=== PATIENT | female | born 1995 | race Hispanic/Latino ===

== ENCOUNTER 2024-11-03 23:57 | Emergency (ER) | payer MEDICAID ==
[~2024-11-03] VITALS: Ht 167.6 cm; Wt 79.4 kg
[2024-11-04] MEDS: 0.9%NACL 1000ML 1,000 ML IV ONE (00:24)
[2024-11-04 00:32] LABS: IMMATURE GRANULOCYTE ABSOLUTE 0.27 K/uL (0-1); NUCLEATED RED BLOOD CELLS 0.0 % (0.0-0.19); PLATELET COUNT (AUTO) 302 K/uL (130-400); RED BLOOD CELL COUNT(AUTO) 3.40 MIL/uL (4.00-5.50); RED CELL DISTRIBUTION WIDTH 13.0 % (11.0-15.5); WHITE BLOOD COUNT (AUTO) 11.0 K/uL (4.8-10.8)
[2024-11-04 00:41] LABS: CREATININE 0.5 mg/dL (0.5-1.0); GLOMERULAR FILTR. RATE CALC 130.0 mL/min (>90); GLUCOSE,RANDOM 104.0 mg/dL (70-105); SODIUM SERUM 137.0 mmol/L (136-145); UREA NITROGEN, BLOOD 5.0 mg/dL (7-18)
[2024-11-04 01:07] LABS: HCG,QUANTITATIVE 39939.0 mIU/mL (0-5)
--- NOTE | 2024-11-04 01:16 | HMCIMG ---
EXAM: US Obstetrical, Complete > 14 weeks CLINICAL HISTORY: Abdominal pain TECHNIQUE: Transabdominal imaging of the maternal pelvis and a >14 week gestation with image documentation. COMPARISON: None available. FINDINGS: FETUS: There is a single living intrauterine gestation, estimated gestational age 23 weeks 1 day ??? 12 days. POSITION: Cephalic, longitudinal lie. HEART RATE: 147 bpm. BIOMETRICS: Based on composite biometry, the estimated gestational age by ultrasound is 23 weeks 1 day. ANATOMIC SURVEY: Visualized anatomy, including lateral ventricles, choroid plexus, cerebellum, cisterna magna, stomach, kidneys, urinary bladder, spine, cord insertion, 3-vessel cord, and 4-chamber heart, are unremarkable. PLACENTA: Anterior, grade I. No evidence of previa or abruption. AMNIOTIC FLUID: Amniotic fluid index: 16.7 cm, within normal limits. CERVIX: Cervical length: 2.95 cm. Closed. SONOGRAPHIC MEASUREMENTS: BPD: 5.57 cm, 23 weeks and 0 days. HC: 21.38 cm, 23 weeks and 3 days. AC: 18.09 cm, 23 weeks and 6 days. FL: 3.82 cm, 22 weeks and 2 days. Cephalic Index: 72.8% (normal 70???86%). Estimated weight: 568 g ??? 86 g (50.80th percentile at 23 weeks and 1 day) IMPRESSION: Single living intrauterine gestation estimated at 23 weeks 1 day ??? 1 day by today???s ultrasound criteria. Normal growth and anatomy. Normal amniotic fluid volume. Cervical length 2.95 cm. No acute abnormality. /[place]
--- NOTE | 2024-11-04 02:01 | ERN ---
ED Note History of Present Illness Stated Complaint: VAGINAL/ABD PRESSURE Chief Complaint: OB>20 weeks gest. Time Seen by MD: 00:05 Time Seen by Midlevel: 00:05 Dictation: The Patient is a 28-year-old female who reports being 22 weeks who pres ents to the emergency department with complaints of lower abdominal pressure onset today. Patient denies any vaginal bleeding or discharge. Denies any nausea or vomiting. Denies any fevers, diarrhea or constipation. Patient denies any contractions. Reports she was seeing a OBGYN in [place] but has now changed to doctor [place]. Allergies: Coded Allergies: No Known Allergies (Unverified Allergy, Unknown, 11/04/24) Past Medical History Past Medical History: No Pertinent History Surgical History: None LMP: May 27, 2024 : 2 Para: 1 RN Note Reviewed/Agreed w/PFSH: Yes Review of System Dictation Constitutional: Negative for fever,chills, and weight loss Eyes: Negative for injury, pain,redness, and discharge ENT: Negative for injury,pain or swelling Cardiovascular: Negative for chest pain, palpitations, and edema Respiratory: Negative for shortness of breath, cough, and wheezing, Abdomen/GI: Negative for nausea, vomiting, diarrhea, and constipation positive for abdominal pain Back: Negative for injury and pain : Negative for injury, bleeding and discharge MS/Extremity: Negative for injury and deformity Skin: Negative for rash, and discoloration Neuro: Negative for headache, weakness, numbness, tingling, and seizure Psych: Negative for suicide ideation, homicidal ideation, and hallucinations Initial Vital Sign VS Vital Signs Date Time Temp Pulse Resp B/P (MAP) Pulse Ox O2 Delivery O2 Flow Rate FiO2 11/03/24 23:59 98.1 88 20 115/73 99 Room Air 11/04/24 00:20 0 21 Physical Exam Dictation Vital Signs reviewed General Appearance: Alert, oriented x 3, no acute distress, well developed, nourished. Head and Face: non-traumatic. Eyes: PERRL, pink conjunctivas, eyelid no trauma, anterior chamber with arcus s enilis. Ears: Pinnas intact and no signs of trauma or erythema ear canals clear and no discharge TM no erythema Nose: No discharge, no bleeding. Oropharynx: Mouth normal, tongue pink. pharynx clear,no erythema, tonsils no exudates, no abscesses noted, mucous membrane moist Neck: Supple, non-tender, no thyromegaly, no masses, no JVD, no bruits Breast:Deferred Chest:No tenderness, no crepitus, no paradoxical movement, no retractions Lungs:Clear, well-ventilated, symmetric, no rales, no wheezing, no rhonchi, no stridor, good breath sounds bilaterally Heart: Regular rate, regular rhythm, no murmur, no gallops Vascular: no peripheral edema, Abdomen: Firm, positive bowel sounds, distended, no guarding, nontender, no rebound, no masses no hepatomegaly, no splenomegaly, no Kennedy's sign, no hernias. Rectal: Deferred Genital: Deferred Neurological: Normal speech, motor function intact, sensory function intact Musculoskeletal: Neck nontender, full range of motion, back nontender, full range of motion, Extremities: nontender, full range of motion Skin: Color pink, dry, no turgor, no rash, no lacerations, no abrasions, no contusions. Lymphatic: Deferred Results (Laboratory/Radiology) Laboratory/Radiology Laboratory Tests Test 11/04/24 00:20 11/04/24 01:57 White Blood Count 11.0 K/uL (4.8-10.8) H Red Blood Count 3.40 MIL/uL (4.00-5.50) L Hemoglobin 11.2 g/dL (12.0-16.0) L Hematocrit 31.2 % (36-48) L Mean Corpuscular Volume 91.8 fL (79-99) Mean Corpuscular Hemoglobin 32.9 pg (27.0-33.0) Mean Corpuscular Hemoglobin Concent 35.9 g/dL (32.0-36.0) Red Cell Distribution Width 13.0 % (11.0-15.5) Platelet Count 302 K/uL (130-400) Mean Platelet Volume 10.1 fL (7.5-10.5) Immature Granulocyte % (Auto) 2.5 % (0-1) H Neutrophils (%) (Auto) 68.4 % (40.0-77.0) Lymphocytes (%) (Auto) 21.0 % (21.0-51.0) Monocytes (%) (Auto) 6.2 % (3.0-13.0) Eosinophils (%) (Auto) 1.5 % (0.0-8.0) Basophils (%) (Auto) 0.4 % (0.0-5.0) Neutrophils # (Auto) 7.5 K/uL (1.8-7.7) Lymphocytes # (Auto) 2.3 K/uL (1.0-4.8) Monocytes # (Auto) 0.7 K/uL (0.1-1.0) Eosinophils # (Auto) 0.17 K/uL (0.00-0.70) Basophils # (Auto) 0.04 K/uL (0.00-0.20) Absolute Immature Granulocyte (auto 0.27 K/uL (0-1) Nucleated Red Blood Cells 0.0 % (0.0-0.19) Sodium Level 137 mmol/L (136-145) Potassium Level 3.5 mmol/L (3.5-5.1) Chloride Level 103 mmol/L (101-111) Carbon Dioxide Level 22 mmol/L (21-32) Blood Urea Nitrogen 5 mg/dL (7-18) L Creatinine 0.5 mg/dL (0.5-1.0) Glomerular Filtration Rate Calc 130 mL/min (>90) Random Glucose 104 mg/dL (70-105) Total Calcium 8.3 mg/dL (8.5-10.1) L Human Chorionic Gonadotropin, Quant 92246 mIU/mL (0-5) H Urine Color LIGHT-YELLOW (YELLOW) Urine Appearance CLOUDY (CLEAR) H Urine pH 6.0 (5.0-8.0) Urine Specific [place] 1.007 (1.001-1.031) Urine Protein NEGATIVE mg/dL (NEGATIVE) Urine Glucose (UA) NEGATIVE mg/dL (NEGATIVE) Urine Ketones NEGATIVE mg/dL (NEGATIVE) Urine Occult Blood NEGATIVE (NEGATIVE) Urine Nitrate NEGATIVE (NEGATIVE) Urine Bilirubin NEGATIVE mg/dL (NEGATIVE) Urine Urobilinogen 0.2 mg/dL (0.2-1.0) Urine Leukocyte Esterase NEGATIVE [place]/uL Urine RBC 0-1 /HPF (0-1) Urine WBC 2-5 /HPF (0-1) H Urine Squamous Epithelial Cells MOD /HPF (0-2) Urine Amorphous Crystals (Auto) RARE /LPF (None Seen) Urine Bacteria FEW /HPF (None Seen) ORDERING PHYSICIAN: MEEK LOVELL PROCEDURE: OB >14 - US OB >14 WEEKS EXAM: US Obstetrical, Complete > 14 weeks CLINICAL HISTORY: Abdominal pain TECHNIQUE: Transabdominal imaging of the maternal pelvis and a >14 week gestation with image documentation. COMPARISON: None available. FINDINGS: FETUS: There is a single living intrauterine gestation, estimated gestational age 23 weeks 1 day ??? 12 days. POSITION: Cephalic, longitudinal lie. HEART RATE: 147 bpm. BIOMETRICS: Based on composite biometry, the estimated gestational age by ultrasound is 23 weeks 1 day. ANATOMIC SURVEY: Visualized anatomy, including lateral ventricles, choroid plexus, cerebellum, cisterna magna, stomach, kidneys, urinary bladder, spine, cord insertion, 3-vessel cord, and 4-chamber heart, are unremarkable. PLACENTA: Anterior, grade I. No evidence of previa or abruption. AMNIOTIC FLUID: Amniotic fluid index: 16.7 cm, within normal limits. CERVIX: Cervical length: 2.95 cm. Closed. SONOGRAPHIC MEASUREMENTS: BPD: 5.57 cm, 23 weeks and 0 days. HC: 21.38 cm, 23 weeks and 3 days. AC: 18.09 cm, 23 weeks and 6 days. FL: 3.82 cm, 22 weeks and 2 days. Cephalic Index: 72.8% (normal 70???86%). Estimated weight: 568 g ??? 86 g (50.80th percentile at 23 weeks and 1 day) IMPRESSION: Single living intrauterine gestation estimated at 23 weeks 1 day ??? 1 day by today???s ultrasound criteria. Normal growth and anatomy. Normal amniotic fluid volume. Cervical length 2.95 cm. No acute abnormality. /[place] Labs Reviewed?: Yes ED Course ED Course Orders Procedure Category Date Status Time Cbc With Differential LAB 11/04/24 Complete 00:10 Abo/Rh BBK 11/04/24 In Process 00:10 Hcg,Quantitative LAB 11/04/24 Complete 00:10 Us Ob >14 Weeks US 11/04/24 Resulted 00:10 0.9%Nacl 1000ml (Ns PHA 11/04/24 Complete 1000ml) 00:30 Acetaminophen 325 Tab PHA 11/04/24 Complete (Tylenol 325mg Tab 00:30 Basic Metabolic Panel LAB 11/04/24 Complete 00:10 Urinalysis Profile LAB 11/04/24 Complete 00:10 Current Medications Medications (Trade) Dose Ordered Sig/Stephanie Route PRN Reason Start Time Stop Time Status Last Admin Dose Admin Acetaminophen (TYLenol 325MG TAB) 650 mg ONCE ONCE PO 11/04/24 00:30 11/04/24 00:31 DC 11/04/24 00:25 Sodium Chloride 1,000 ml @ 0 mls/hr ONCE ONCE IV 11/04/24 00:30 11/04/24 00:31 DC 11/04/24 00:24 Vital Signs Date Time Temp Pulse Resp B/P (MAP) Pulse Ox O2 Delivery O2 Flow Rate FiO2 11/04/24 02:03 99.1 81 16 110/62 97 Room Air* 0 21 11/04/24 00:20 97.9 103 17 118/75 98 Room Air* 0 21 11/03/24 23:59 98.1 88 20 115/73 99 Room Air Medical Decision Making MDM The Patient is a 28-year-old female who reports being 22 weeks who presents to the emergency department with complaints of lower abdominal pressure onset today. Patient denies any vaginal bleeding or discharge. Denies any nausea or vomiting. Denies any fevers, diarrhea or constipation. Patient denies any contractions. Reports she was seeing a OBGYN in [place] but has now changed to doctor [place]. CBC showed mild leukocytosis, mild normocytic anemia, chemistry showed no electrolyte imbalance, [place] [address]. ultrasound revealed single live intrauterine corresponding to 23weeks and one day. Normal anatomy, normal amniotic fluid, no abnormalities. heart rate of 147. Urinalysis was unremarkable. Case discussed with Dr. Chase who reports patient can be discharge to follow up with OBGYN > patient with no vaginal bleeding or discharge. Denies any contractions. Patient's educated to follow up with the OBGYN and to return to the ER if she develops any vaginal bleeding or discharge or any concerns. Patient in no acute distress, nontoxic appearance we will discharged to follow up with the OBGYN. Differential diagnosis: UTI, during , active labor Need for hospitalization: Patient does not meet criteria for hospitalization. There are no social concerns with this patient. DX & DISP Disposition: Discharge Departure Impression: Primary Impression: 23 weeks gestation of Condition: Stable Additional Instructions: Please follow up with your OBGYN as soon as possible. If you develop severe abdominal pain, vaginal bleeding or discharge or you have any concerns please return to ER. FOLLOW-UP WITH PRIMARY CARE PROVIDER IN 1 TO 2 DAYS. TAKE MEDICATIONS DIRECTED HERE IN THE EMERGENCY ROOM. OKAY TO CONTINUE HOME MEDICATIONS UNLESS OTHERWISE DISCUSSED DURING YOUR VISIT IN THE EMERGENCY ROOM TODAY. RETURN TO YOUR NEAREST EMERGENCY ROOM IF SYMPTOMS WORSEN OR IF THERE IS NO IMPROVEMENT. CALL 911 IF YOU NEED IMMEDIATE ASSISTANCE. TAKE TYLENOL [id number] NEEDED AND IF NO CONTRAINDICATIONS ARE PRESENT. INCREASE ORAL HYDRATION. A WOUND CULTURE OR URINE CULTURE WAS ORDERED HERE IN THE EMERGENCY ROOM DEPARTMENT PLEASE FOLLOW-UP WITH PRIMARY CARE PROVIDER AND ADVISE THEM TO GET REPEAT PORTS FROM OUR FACILITY. IF YOU HAD ANY ARNIE WRAP/SPLINTS THAT WERE APPLIED HERE, PLEASE DO NOT REMOVE THEM UNTIL YOU SEE YOUR PRIMARY CARE OR SPECIALTY. Referrals: AREN STEPHENS MD (PCP) Time of Disposition: 02:22 I have reviewed the case, and I agree with, Diagnosis and Plan MEEK LOVELL Nov 04, 2024 02:00
[2024-11-04 02:07] LABS: APPEARANCE,URINE CLOUDY (CLEAR); GLUCOSE, URINE (UA) NEGATIVE (NEGATIVE); LEUKOCYTE ESTERASE ,URINE NEGATIVE Leu/uL (NEGATIVE); NITRATE,URINE NEGATIVE (NEGATIVE); OCCULT BLOOD,URINE NEGATIVE (NEGATIVE)
[2024-11-04 02:13] LABS: ADD UA MICROSCOPIC YES
[2024-11-04 02:14] LABS: SQUAMOUS EPITHELIAL CELL,UR MOD /HPF (0-2)
[2024-11-04 02:32] VITALS: BP 109/69; PULSE 77; RESP 16; TEMP 98.9; O2SAT 98
== END 2024-11-04 02:33 | disposition home or self-care (01) ==
LOC: EDH 23:57
DX: O26.892 Other specified pregnancy related conditions, second trimester (principal); R10.30 Lower abdominal pain, unspecified; R10.2 Pelvic and perineal pain; Z3A.23 23 weeks gestation of pregnancy
CPT/HCPCS: 36415; 76805; 80048; 81001; 84702; 85025; 86900; 86901; 99284